=== PATIENT | female | born 1980 | race Caucasian/White ===

== ENCOUNTER 2019-08-26 12:13 | Emergency (ER) | payer MEDICAID ==
[2019-08-26 12:20] VITALS: Wt 70.5 kg
[2019-08-26] MEDS ORDERED: LEXAPRO20 MG PO (12:22)
[2019-08-26 14:08] LABS: BASOPHILS 0.2 % (0-2); EOSINOPHILS 1.1 % (0-7); HEMATOCRIT 37.5 % (36.0-48.0); IMMATURE GRANULOCYTES 0.2 % (0-5); LYMPHOCYTES 43.5 % (15-50); MCH 30.9 pg (26.0-34.0); MCHC 34.7 g/dL (31.0-37.0); MCV 89.1 fL (80.0-100.0); MEAN PLATELET VOLUME 10.6 fL (7.4-10.4); MONOCYTES 7.3 % (2-11); NEUTROPHILS 47.7 % (40-80); PLATELET COUNT 256 10x3/uL (130-400); RBC 4.21 10x6/uL (4.00-5.40); RDW 13.1 % (11.5-14.5); WBC 6.3 10x3/uL (4.8-10.8)
[2019-08-26 14:28] LABS: ALBUMIN 2.9 g/dL (3.4-5.0); ALKALINE PHOSPHATASE 49 U/L (30-120); ALT (SGPT) 16 U/L (10-68); BILIRUBIN - TOTAL 0.16 mg/dL (0.2-1.3); C-REACTIVE PROTEIN 0.5 mg/dL (0.0-0.9); CALC OSMOLALITY 284 mosm/kg (275-300); CARBON DIOXIDE 28.8 mmol/L (21.0-32.0); CHLORIDE - SERUM 107 mmol/L (98-107); CREATININE - SERUM 0.7 mg/dL (0.6-1.3); GLUCOSE 90 mg/dL (74-106); PROTEIN - SERUM 5.8 g/dL (6.4-8.2); SODIUM 142 mmol/L (136-145); UREA NITROGEN 18 mg/dL (7-18); eGFR NON AFRICAN AMERICAN > 90 mL/min (90-120)
[2019-08-26 14:32] LABS: POTASSIUM - SERUM 2.9 mmol/L (3.5-5.1)
[2019-08-26] MEDS ORDERED: K-TAB10 MEQ PO (14:46)
[2019-08-26] MEDS ORDERED: CYCLOBENZAPRINE10 MG PO (14:46)
[2019-08-26] MEDS ORDERED: EC-NAPROSYN500 MG PO (14:46)
[2019-08-26 15:42] VITALS: BP 110/66
== END 2019-08-26 15:44 | disposition home or self-care (01) ==
LOC: D.ER 12:13
PROVIDERS: Family Medicine
DX: R09.1 Pleurisy (principal); E87.6 Hypokalemia; I10 Essential (primary) hypertension